=== PATIENT | female | born 1995 | race Caucasian/White ===

== ENCOUNTER 2020-01-28 16:42 | Emergency (ER) | payer SELFPAY ==
[~2020-01-28] VITALS: Ht 180.3 cm; Wt 52.6 kg
[2020-01-28 16:57] VITALS: BP 104/70
--- NOTE | 2020-01-28 16:58 | NUR ---
ED Nurse Note: pt walked in to ER from home due to vaginal bleeding started today. pt has IUD. pt aao x4 and ambulatory. no cardiac or pulmonary distress noted at this time.
--- NOTE | 2020-01-28 17:02 | NUR ---
ED Nurse Note: pt ambulated to US with US tech in stable condition.
--- NOTE | 2020-01-28 17:40 | NUR ---
ED Nurse Note: pt came back from US in stable condition.
--- NOTE | 2020-01-28 17:48 | Diagnostic Imaging Report ---
EXAM: US Pelvis Transabdominal and Transvaginal, Complete CLINICAL HISTORY: PAIN TECHNIQUE: Real-time complete transabdominal and transvaginal pelvic ultrasound with image documentation. Transvaginal imaging was used for better evaluation of the endometrium and adnexa. COMPARISON: No relevant prior studies available. FINDINGS: Uterus/cervix: Uterus measures 6.3 x 4.5 x 3.2 cm. Normal endometrium measuring 3 mm. No myometrial mass. Right ovary: Normal in size and appearance, measuring 4.0 x 2.9 x 1.7 cm. Physiologic appearing follicles. No adnexal mass. Normal blood flow. Left ovary: Normal in size and appearance, measuring 2.7 x 2.9 x 1.3 cm. Physiologic appearing follicles. No adnexal mass. Normal blood flow. Free fluid: No free fluid. Bladder: Not well seen. Tubes, lines and devices: An intrauterine device is noted. IMPRESSION: Unremarkable pelvic sonogram.
[2020-01-28 17:52] LABS: APPEARANCE,URINE CLEAR; BILIRUBIN, URINE NEGATIVE (NEGATIVE); GLUCOSE, URINE (UA) NEGATIVE (NEGATIVE); KETONES,URINE 2+ (NEGATIVE); LEUKOCYTE ESTERASE ,URINE 1+ (NEGATIVE); NITRITE,URINE NEGATIVE (NEGATIVE); PH,URINE 6 (4.5-8.0); PROTEIN,URINE 2+ (NEGATIVE); UROBILINOGEN,URINE 1 MG/DL (0.0-1.0)
[2020-01-28 17:57] LABS: COLOR,URINE YELLOW
--- NOTE | 2020-01-28 17:57 | Emergency Room Report ---
History of Present Illness General Chief Complaint: Vaginal Source: Patient Present Illness HPI 24-year-old female with no signal past medical history here complaining of increased vaginal bleeding that happened prior to arrival. Patient reports that she placed in an IUD 1 year ago and has been spotting since. Patient reports that she did not receive her menstruation for months earlier today have increased bleeding vaginally. Reports that she was last sexually active last night and is afraid maybe the IUD has moved. Also complains of lower abdominal pain. Denies nausea vomiting, fever or chills. Denies urinary symptoms. Has not taken medication for symptom relief. Also complains of minimal lightheadedness after bleeding. Allergies: Coded Allergies: DIPHENHYDRAMINE (Verified Allergy, Unknown, 01/28/20) SUMATRIPTAN (Verified Allergy, Unknown, 01/28/20) COVID-19 Screening Contact w/high risk pt: No Experienced COVID-19 symptoms?: No COVID-19 Testing performed LEAD CASE MANAGER: No Patient History Past Medical History: see triage record Past Surgical History: none Pertinent Family History: none Last Menstrual Period: IUD Immunizations: UTD Reviewed Nursing Documentation: PMH: Agreed; PSxH: Agreed Nursing Documentation-PMH Past Medical History: No History, Except For Review of Systems All Other Systems: negative except mentioned in HPI Physical Exam Vital Signs Date Time Temp Pulse Resp B/P (MAP) Pulse Ox O2 Delivery O2 Flow Rate FiO2 01/28/20 16:46 98.2 83 17 104/70 (81) 99 Room Air Sp02 EP Interpretation: reviewed, normal General Appearance: no apparent distress, alert, GCS 15, non-toxic Head: normocephalic, atraumatic Eyes: bilateral eye normal inspection, bilateral eye PERRL ENT: hearing grossly normal, normal pharynx, no angioedema, normal voice Neck: full range of motion, supple/symm/no masses Respiratory: chest non-tender, lungs clear, normal breath sounds, speaking full sentences Cardiovascular #1: regular rate, rhythm, no edema Gastrointestinal: normal bowel sounds, non tender, soft, no mass, no organomegaly, no peritonitis, no bruit, non-distended, no guarding, no pulsatile mass, no rebound Genitourinary: no CVA tenderness Musculoskeletal: back normal, no calf tenderness Neurologic: alert, motor strength/tone normal, oriented x3, sensory intact, responsive, speech normal Psychiatric: judgement/insight normal, memory normal, mood/affect normal, no suicidal/homicidal ideation Skin: no rash Lymphatic: no adenopathy Medical Decision Making PA Attestation ALL Diagnosis and treatment plan reviewed and discussed with my supervising physician Dr. Hogan Diagnostic Impression: Primary Impression: DUB (dysfunctional uterine bleeding) Additional Impression: UTI (urinary tract infection) ER Course 24-year-old female with no signal past medical history here complaining of increased vaginal bleeding that happened prior to arrival. Patient reports that she placed in an IUD 1 year ago and has been spotting since. Patient reports that she did not receive her menstruation for months earlier today have [facility] ed bleeding vaginally. Reports that she was last sexually active last night and is afraid maybe the IUD has moved. Also complains of lower abdominal pain. Denies nausea vomiting, fever or chills. Denies urinary symptoms. Has not taken medication for symptom relief. Also complains of minimal lightheadedness after bleeding. Ddx considered but are not limited to: IUD misplacement, dysfunctional uterine bleeding, ovarian cyst, uterine fibroids, ectopic , threatened , UTI, pyelonephritis, urinary incontinence, prolapsed bladder Vital signs: are WNL, pt. is afebrile H&PE are most consistent with: UTI, DU B, ORDERS: UA, urine cx pelvic and transvaginal ultrasound, urine , CBC, CMP, Keflex, motrin ED INTERVENTIONS: None required at this time. DISCHARGE: At this time pt. is stable for d/c to home. Will provide printed patient care instructions, and any necessary prescriptions. Care plan and follow up instructions have been discussed with the patient prior to discharge. Take medication as directed, follow-up with the primary care provider, if worsening symptoms return to the emergency room CT/MRI/US Diagnostic Results CT/MRI/US Diagnostic Results : Imaging Test Ordered: pelvic US Impression COMPARISON: No relevant prior studies available. FINDINGS: Uterus/cervix: Uterus measures 6.3 x 4.5 x 3.2 cm. Normal endometrium measuring 3 mm. No myometrial mass. Right ovary: Normal in size and appearance, measuring 4.0 x 2.9 x 1.7 cm. Physiologic appearing follicles. No adnexal mass. Normal blood flow. Left ovary: Normal in size and appearance, measuring 2.7 x 2.9 x 1.3 cm. Physiologic appearing follicles. No adnexal mass. Normal blood flow. Free fluid: No free fluid. Bladder: Not well seen. Tubes, lines and devices: An intrauterine device is noted. IMPRESSION: Unremarkable pelvic sonogram. Last Vital Signs Date Time Temp Pulse Resp B/P (MAP) Pulse Ox O2 Delivery O2 Flow Rate FiO2 01/28/20 16:57 98.2 17 104/70 99 Room Air 01/28/20 16:46 83 Disposition: HOME, SELF-CARE Condition: Stable Referrals: NOT CHOSEN IPA/MD,REFERRING (PCP) Patient Instructions: Dysfunctional Uterine Bleeding, Urinary Tract Infection Additional Instructions: Take medication as directed, follow-up with the primary care provider, if worsening symptoms return to the emergency room Philomena Robles Jan 28, 2020 17:57
[2020-01-28 18:02] LABS: INR 1.1 (0.9-1.1)
[2020-01-28 18:06] LABS: BASOPHILS % (AUTO) 0.8 % (0.0-2.0); EOSINOPHILS % (AUTO) 0.8 % (0.0-3.0); HEMATOCRIT 40.6 % (37.0-47.0); HEMOGLOBIN 14.3 G/DL (12.0-16.0); LYMPHOCYTES % (AUTO) 24.2 % (20.0-45.0); MEAN CORPUSCULAR VOLUME 95 FL (80-99); MONOCYTES % (AUTO) 7.6 % (1.0-10.0); NEUTROPHILS % (AUTO) 66.6 % (45.0-75.0); PLATELET COUNT 201 K/UL (150-450); RED BLOOD COUNT 4.29 M/UL (4.20-5.40); RED CELL DISTRIBUTION WIDTH 12.9 % (11.6-14.8); WHITE BLOOD COUNT 9.4 K/UL (4.8-10.8)
[2020-01-28 18:10] LABS: ANION GAP 9 mmol/L (5-15); BLOOD UREA NITROGEN 15 mg/dL (7-18); CARBON DIOXIDE 28 MMOL/L (21-32); CHLORIDE 106 MMOL/L (98-107); CREATININE 0.8 MG/DL (0.55-1.30); POTASSIUM 3.7 MMOL/L (3.5-5.1); SODIUM 143 MMOL/L (136-145)
[2020-01-28 18:14] LABS: ALANINE AMINOTRANSFERASE 22 U/L (12-78); ALBUMIN 4.4 G/DL (3.4-5.0); ALBUMIN/GLOBULIN RATIO 1.3 (1.0-2.7); ALKALINE PHOSPHATASE 58 U/L (46-116); ASPARTATE AMINO TRANSFERASE 16 U/L (15-37); BILIRUBIN,TOTAL 1.2 MG/DL (0.2-1.0)
[2020-01-28 18:15] LABS: BILIRUBIN,DIRECT 0.2 MG/DL (0.0-0.3)
[2020-01-28] MEDS ORDERED: IBUPROFEN600 M1 ORAL (18:21)
[2020-01-28] MEDS ORDERED: CEPHALEXIN500 MG ORAL (18:21)
[2020-01-28] MEDS ORDERED: ACYCLOVIR400 MG ORAL (18:29)
[2020-01-28 18:34] VITALS: BP 104/70
--- NOTE | 2020-01-28 18:35 | NUR ---
ED Nurse Note: Pt cleared by health care Provider for discharge. DC instructions/prescription was given and explained to pt and verbalized understanding of teachings. All medical deviecs such as ID band removed. Pt is AAO x4, ambulatory and left with all personal belongings.
== END 2020-01-28 18:35 | disposition home or self-care (01) ==
LOC: EMR 17:00
DX: N93.8 Other specified abnormal uterine and vaginal bleeding (principal); N39.0 Urinary tract infection, site not specified; Z88.8 Allergy status to other drugs, medicaments and biological substances
CPT/HCPCS: 36415; 76830; 76856; 80053; 81003; 81025; 82248; 85025; 85610; 85730; 87086; 99284